=== PATIENT | male | born 1960 | race Caucasian/White ===

== ENCOUNTER 2017-10-31 11:30 | Inpatient (IN) ==
[2017-10-31] MEDS ORDERED: SODIUM CHLORIDE 0.9% 1,000 ML IV STA ×2 (12:04→13:21)
[2017-10-31] MEDS ORDERED: LEVOFLOXACIN INJ 750 MG in PREMIX 1 EACH IV STA (12:04)
[2017-10-31 12:13] LABS: Basophils % 0.2 % (0.0-0.8); Eosinophils # 0.1 10*3/uL (0.0-0.87); Eosinophils % 0.5 % (0.00-10.9); Hematocrit 36.5 VOL% (42.0-52.0); Hemoglobin 11.7 GM/DL (14.0-18.0); Immature Granulocytes % 0.5 %; Lymphocytes # 0.3 10*3/uL (1.4-4.0); Lymphocytes % 1.3 % (21.2-54.2); Mean Corpuscular HGB Conc 32.1 GM/DL (32-36); Mean Corpuscular Hemoglobin 27 PG (27-34); Mean Corpuscular Volume 83.1 FL (87-102); Mean Platelet Volume 9.1 FL (9.6-12.0); Monocytes # 0.5 10*3/uL (0.11-0.8); Monocytes % 2.4 % (1.7-12.7); Neutrophils % 95.1 % (38.7-73.9); Platelet Count 385 T/CUMM (130-400); Red Blood Count 4.39 MC/CUMM (3.8-5.5); White Blood Count 19.9 T/CUMM (4-12)
[2017-10-31 12:33] LABS: Lactic Acid 4.1 MMOL/L (0.4-2.0)
[2017-10-31 12:34] LABS: Band Neutrophils 1 % (0-10); Hypochromasia 1+; Lymphocytes 3 % (20-55); Microcytosis Slight; Segmented Neutrophils 95 % (50-85); Total Cells Counted 100
[2017-10-31 12:42] LABS: Alanine Aminotransferase 74 U/L (16-61); Albumin 3.3 G/DL (3.4-5.0); Alkaline Phosphatase 183 U/L (45-117); Aspartate Amino Transferase 91 U/L (0-37); Bilirubin,Total < 0.39 MG/DL (0.2-1.0); Blood Urea Nitrogen 12 MG/DL (7-18); Calcium 9.5 MG/DL (8.5-10.1); Glucose 152 MG/DL (74-106); Osmolality,Calculated 279.5 MOS/KG (273-304); Potassium 3.8 MMOL/L (3.5-5.1); Sodium 139 MMOL/L (136-145); Total Protein 7.8 G/DL (6.4-8.3)
[2017-10-31] MEDS ORDERED: SODIUM CHLORIDE 0.9% 2,450 ML IV ONE (13:16)
[2017-10-31] MEDS ORDERED: POLYVINYL ALCOHOL 1.4% OPH SOLN 15 ML BOTTLE BOTH EYES PRN (13:40)
[2017-10-31] MEDS ORDERED: MOISTURIZING CREAM (EUCERIN) 113 GM JAR TOP PRN (13:40)
[2017-10-31] MEDS ORDERED: DEXTROSE 50% 25 GM/50 ML VIAL IV PRN (14:00)
[2017-10-31] MEDS ORDERED: PIPERACILLIN/TAZOBACTAM 3,375 MG in SODIUM CHLORIDE 0.9% 100 ML IV SCH (14:00)
[2017-10-31] MEDS ORDERED: GLUCAGON 1 MG VIAL IM PRN (14:00)
[2017-10-31] MEDS ORDERED: guaiFENesin/DM ER 600-30 MG TABLET PO PRN (14:04)
[2017-10-31] MEDS ORDERED: ACETAMINOPHEN 325 MG TABLET PO PRN (14:04)
[2017-10-31] MEDS ORDERED: ONDANSETRON 4 MG/2 ML VIAL IV PRN (14:04)
[2017-10-31] MEDS ORDERED: ALBUTEROL 2.5 MG/3 ML NEB RESP TX PRN (14:04)
[2017-10-31 14:14] LABS: Amorphous Crystals,Urine Few /HPF (Few); Apearance,Urine CLOUDY (Clear); Bilirubin,Urine Negative (Negative); Blood, Urine Negative (Negative); Glucose,Urine (UA) Negative (Negative); Ketones,Urine Negative (Negative); Mucus,Urine Occasional /LPF (Occasional); Nitrite,Urine Negative (Negative); Protein,Urine Negative; Urine Color Yellow (Yellow); Urine Specific Gravity 1.012 (1.001-1.035); Urine Urobilinogen < 2.0 EU/DL (0.2-1.0); WBC,Urine 4 /HPF (0-6)
[2017-10-31] MEDS ORDERED: MEROPENEM 1,000 MG VIAL IV ONE (14:27)
[2017-10-31] MEDS ORDERED: NOREPINEPHRINE 8 MG in SODIUM CHLORIDE 0.9% 242 ML IV SCH (14:30)
[2017-10-31 14:42] LABS: ABG Base Excess 1.4 MMOL/L (-2.5-2.5); ABG HCO3 25.6 MMOL/L (20-26); ABG Oxygen Saturation 97.9 % (95-100); ABG PCO2 43.5 MM HG (35-48); ABG PH 7.393 (7.35-7.45); ABG TCO2 24.1 MMOL/L (23-27); Allen Test Positive
[2017-10-31] MEDS: SODIUM CHLORIDE 0.9% 1,000 ML IV SCH (16:10)
[2017-10-31] MEDS: MEROPENEM 500 MG in SYRINGE 1 EACH IV SCH ×2 (16:10→23:41)
[2017-10-31] MEDS: VANCOMYCIN INJ 1,250 MG in SODIUM CHLORIDE 0.9% 250 ML IV SCH (16:11)
[2017-10-31] MEDS: INSULIN REGULAR 100 UNIT/ML SUBCUT SCH ×2 (18:56→21:45)
[2017-10-31] MEDS: GABAPENTIN 300 MG CAPSULE PO SCH ×2 (18:56→21:32)
[2017-10-31] MEDS: DOCUSATE SODIUM 100 MG CAPSULE PO SCH (21:33)
[2017-10-31] MEDS: HEPARIN 5,000 UNIT/1 ML VIAL SUBCUT SCH (21:33)
[2017-11-01] MEDS: traZODone 50 MG TABLET PO PRN ×2 (01:45→21:41)
[2017-11-01] MEDS: SODIUM CHLORIDE 0.9% 1,000 ML IV SCH ×3 (02:18→17:17)
[2017-11-01] MEDS: HEPARIN 5,000 UNIT/1 ML VIAL SUBCUT SCH ×3 (07:02→21:41)
[2017-11-01] MEDS: MEROPENEM 500 MG in SYRINGE 1 EACH IV SCH ×3 (07:03→21:41)
[2017-11-01] MEDS: VANCOMYCIN INJ 1,250 MG in SODIUM CHLORIDE 0.9% 250 ML IV SCH ×2 (07:03→18:39)
[2017-11-01 07:05] LABS: Basophils % 0.3 % (0.0-0.8); Eosinophils # 0.5 10*3/uL (0.0-0.87); Eosinophils % 3.2 % (0.00-10.9); Hematocrit 33.3 VOL% (42.0-52.0); Hemoglobin 10.5 GM/DL (14.0-18.0); Immature Granulocytes % 0.6 %; Immature Granulocytes Absolute 0.09 #; Lymphocytes % 13.9 % (21.2-54.2); Mean Corpuscular HGB Conc 31.5 GM/DL (32-36); Mean Corpuscular Hemoglobin 27 PG (27-34); Mean Corpuscular Volume 84.1 FL (87-102); Mean Platelet Volume 9.5 FL (9.6-12.0); Monocytes % 6.8 % (1.7-12.7); Neutrophils # 10.9 10*3/uL (1.4-7.4); Neutrophils % 75.2 % (38.7-73.9); Platelet Count 304 T/CUMM (130-400); Red Blood Count 3.96 MC/CUMM (3.8-5.5); Red Cell Distribution Width 14.1 % (9.3-17.3); White Blood Count 14.5 T/CUMM (4-12)
[2017-11-01 07:16] LABS: Calcium 8.7 MG/DL (8.5-10.1); Osmolality,Calculated 274.4 MOS/KG (273-304)
[2017-11-01] MEDS: INSULIN REGULAR 100 UNIT/ML SUBCUT SCH ×4 (07:33→22:09)
[2017-11-01] MEDS: FERROUS SULFATE 325 MG TABLET PO SCH (08:53)
[2017-11-01] MEDS: BISACODYL 5 MG TABLET PO SCH (08:54)
[2017-11-01] MEDS: GABAPENTIN 300 MG CAPSULE PO SCH ×3 (08:54→21:42)
[2017-11-01] MEDS: DOCUSATE SODIUM 100 MG CAPSULE PO SCH ×2 (08:55→21:41)
[2017-11-01] MEDS: SERTRALINE 50 MG TABLET PO SCH (08:55)
[2017-11-01] MEDS: PANTOPRAZOLE 40 MG VIAL IV SCH (08:55)
[2017-11-01] MEDS ORDERED: SODIUM CHLORIDE 0.9% 500 ML IV ONE (09:08)
[2017-11-01 09:39] LABS: Albumin 2.4 G/DL (3.4-5.0); Bilirubin,Total 0.4 MG/DL (0.2-1.0); Osmolality,Calculated 279.1 MOS/KG (273-304); Total Protein 6.7 G/DL (6.4-8.3)
[2017-11-01] MEDS ORDERED: ZINC OXIDE PASTE 113 GM TUBE TOP PRN (14:38)
[2017-11-01 18:12] LABS: Lymphocytes,Synovial Fluid 77 %; Neutrophils,Synovial Fluid 20 %
[2017-11-02] MEDS: SODIUM CHLORIDE 0.9% 1,000 ML IV SCH ×4 (01:53→17:22)
[2017-11-02] MEDS: HEPARIN 5,000 UNIT/1 ML VIAL SUBCUT SCH ×3 (03:59→20:52)
[2017-11-02] MEDS: MEROPENEM 500 MG in SYRINGE 1 EACH IV SCH ×3 (06:44→21:01)
[2017-11-02] MEDS: VANCOMYCIN INJ 1,250 MG in SODIUM CHLORIDE 0.9% 250 ML IV SCH (06:45)
[2017-11-02] MEDS: INSULIN REGULAR 100 UNIT/ML SUBCUT SCH ×4 (07:52→20:52)
[2017-11-02] MEDS: PANTOPRAZOLE 40 MG VIAL IV SCH (08:22)
[2017-11-02] MEDS: SERTRALINE 50 MG TABLET PO SCH (08:23)
[2017-11-02] MEDS: FERROUS SULFATE 325 MG TABLET PO SCH (08:23)
[2017-11-02] MEDS: BISACODYL 5 MG TABLET PO SCH (08:23)
[2017-11-02] MEDS: GABAPENTIN 300 MG CAPSULE PO SCH ×3 (08:23→20:52)
[2017-11-02] MEDS: DOCUSATE SODIUM 100 MG CAPSULE PO SCH ×2 (08:23→20:51)
[2017-11-02] MEDS: traZODone 50 MG TABLET PO PRN (21:09)
[2017-11-03] MEDS: VANCOMYCIN INJ 1,250 MG in SODIUM CHLORIDE 0.9% 250 ML IV SCH ×2 (01:00→18:40)
[2017-11-03 03:30] LABS: Basophils % 0.3 % (0.0-0.8); Eosinophils # 0.3 10*3/uL (0.0-0.87); Eosinophils % 2.3 % (0.00-10.9); Hematocrit 32.6 VOL% (42.0-52.0); Hemoglobin 10.2 GM/DL (14.0-18.0); Immature Granulocytes % 0.4 %; Immature Granulocytes Absolute 0.04 #; Lymphocytes % 18.2 % (21.2-54.2); Mean Corpuscular HGB Conc 31.3 GM/DL (32-36); Mean Corpuscular Hemoglobin 26 PG (27-34); Mean Platelet Volume 9.2 FL (9.6-12.0); Monocytes # 0.5 10*3/uL (0.11-0.8); Monocytes % 4.5 % (1.7-12.7); Neutrophils # 7.9 10*3/uL (1.4-7.4); Neutrophils % 74.3 % (38.7-73.9); Platelet Count 393 T/CUMM (130-400); Red Blood Count 3.93 MC/CUMM (3.8-5.5); Red Cell Distribution Width 13.5 % (9.3-17.3); White Blood Count 10.7 T/CUMM (4-12)
[2017-11-03 04:13] LABS: Calcium 9.3 MG/DL (8.5-10.1); Osmolality,Calculated 284.7 MOS/KG (273-304); Potassium 3.4 MMOL/L (3.5-5.1)
[2017-11-03] MEDS: HEPARIN 5,000 UNIT/1 ML VIAL SUBCUT SCH ×3 (04:27→22:04)
[2017-11-03] MEDS: SODIUM CHLORIDE 0.9% 1,000 ML IV SCH ×2 (04:28→21:00)
[2017-11-03] MEDS: MEROPENEM 500 MG in SYRINGE 1 EACH IV SCH ×3 (06:27→22:04)
[2017-11-03] MEDS: INSULIN REGULAR 100 UNIT/ML SUBCUT SCH ×4 (08:25→22:05)
[2017-11-03] MEDS: DOCUSATE SODIUM 100 MG CAPSULE PO SCH ×2 (09:34→22:05)
[2017-11-03] MEDS: BISACODYL 5 MG TABLET PO SCH (09:34)
[2017-11-03] MEDS: PANTOPRAZOLE 40 MG VIAL IV SCH (09:34)
[2017-11-03] MEDS: GABAPENTIN 300 MG CAPSULE PO SCH ×3 (09:34→22:05)
[2017-11-03] MEDS: FERROUS SULFATE 325 MG TABLET PO SCH (09:34)
[2017-11-03] MEDS: SERTRALINE 50 MG TABLET PO SCH (09:34)
[2017-11-03] MEDS: POTASSIUM CHLORIDE 20 MEQ TABLET PO SCH ×2 (13:15→16:52)
[2017-11-03] MEDS: traZODone 50 MG TABLET PO PRN (22:05)
[2017-11-04] MEDS: HEPARIN 5,000 UNIT/1 ML VIAL SUBCUT SCH ×3 (05:54→21:26)
[2017-11-04] MEDS: MEROPENEM 500 MG in SYRINGE 1 EACH IV SCH ×3 (06:16→21:26)
[2017-11-04] MEDS: INSULIN REGULAR 100 UNIT/ML SUBCUT SCH ×4 (07:21→21:27)
[2017-11-04] MEDS: SERTRALINE 50 MG TABLET PO SCH (09:38)
[2017-11-04] MEDS: PANTOPRAZOLE 40 MG TABLET PO SCH (09:38)
[2017-11-04] MEDS: GABAPENTIN 300 MG CAPSULE PO SCH ×3 (09:38→21:26)
[2017-11-04] MEDS: DOCUSATE SODIUM 100 MG CAPSULE PO SCH ×2 (09:38→21:27)
[2017-11-04] MEDS: FERROUS SULFATE 325 MG TABLET PO SCH (09:38)
[2017-11-04] MEDS: BISACODYL 5 MG TABLET PO SCH (09:38)
[2017-11-04] MEDS: VANCOMYCIN INJ 1,250 MG in SODIUM CHLORIDE 0.9% 250 ML IV SCH ×2 (13:10→21:25)
[2017-11-04] MEDS: traZODone 50 MG TABLET PO PRN (21:26)
[2017-11-05] MEDS: HEPARIN 5,000 UNIT/1 ML VIAL SUBCUT SCH ×3 (04:24→20:26)
[2017-11-05 05:50] LABS: Basophils % 0.3 % (0.0-0.8); Eosinophils # 0.3 10*3/uL (0.0-0.87); Eosinophils % 2.4 % (0.00-10.9); Hematocrit 36.5 VOL% (42.0-52.0); Hemoglobin 11.5 GM/DL (14.0-18.0); Immature Granulocytes % 0.6 %; Immature Granulocytes Absolute 0.06 #; Lymphocytes % 28.6 % (21.2-54.2); Mean Corpuscular HGB Conc 31.5 GM/DL (32-36); Mean Corpuscular Hemoglobin 26 PG (27-34); Mean Corpuscular Volume 82.8 FL (87-102); Mean Platelet Volume 9.3 FL (9.6-12.0); Monocytes # 0.6 10*3/uL (0.11-0.8); Monocytes % 5.8 % (1.7-12.7); Neutrophils # 6.5 10*3/uL (1.4-7.4); Neutrophils % 62.3 % (38.7-73.9); Platelet Count 459 T/CUMM (130-400); Red Blood Count 4.41 MC/CUMM (3.8-5.5); Red Cell Distribution Width 13.9 % (9.3-17.3); White Blood Count 10.5 T/CUMM (4-12)
[2017-11-05 06:08] LABS: Calcium 9.7 MG/DL (8.5-10.1); Osmolality,Calculated 278.3 MOS/KG (273-304); Potassium 3.8 MMOL/L (3.5-5.1)
[2017-11-05] MEDS: MEROPENEM 500 MG in SYRINGE 1 EACH IV SCH (06:29)
[2017-11-05] MEDS: INSULIN REGULAR 100 UNIT/ML SUBCUT SCH ×4 (07:30→20:27)
[2017-11-05] MEDS: VANCOMYCIN INJ 1,250 MG in SODIUM CHLORIDE 0.9% 250 ML IV SCH (09:00)
[2017-11-05] MEDS: DOCUSATE SODIUM 100 MG CAPSULE PO SCH ×2 (10:45→20:25)
[2017-11-05] MEDS: GABAPENTIN 300 MG CAPSULE PO SCH ×3 (10:45→20:25)
[2017-11-05] MEDS: FERROUS SULFATE 325 MG TABLET PO SCH (10:45)
[2017-11-05] MEDS: BISACODYL 5 MG TABLET PO SCH (10:45)
[2017-11-05] MEDS: SERTRALINE 50 MG TABLET PO SCH (10:45)
[2017-11-05] MEDS: PANTOPRAZOLE 40 MG TABLET PO SCH (10:45)
[2017-11-05] MEDS: traZODone 50 MG TABLET PO PRN (20:25)
[2017-11-06] MEDS: HEPARIN 5,000 UNIT/1 ML VIAL SUBCUT SCH ×3 (04:33→21:01)
[2017-11-06 05:55] LABS: Calcium 10.4 MG/DL (8.5-10.1); Osmolality,Calculated 279.3 MOS/KG (273-304); Potassium 3.7 MMOL/L (3.5-5.1)
[2017-11-06] MEDS: INSULIN REGULAR 100 UNIT/ML SUBCUT SCH ×4 (08:47→20:57)
[2017-11-06] MEDS: FERROUS SULFATE 325 MG TABLET PO SCH (09:09)
[2017-11-06] MEDS: PANTOPRAZOLE 40 MG TABLET PO SCH (09:09)
[2017-11-06] MEDS: DOCUSATE SODIUM 100 MG CAPSULE PO SCH ×2 (09:11→20:59)
[2017-11-06] MEDS: GABAPENTIN 300 MG CAPSULE PO SCH ×3 (09:11→20:59)
[2017-11-06] MEDS: BISACODYL 5 MG TABLET PO SCH (09:11)
[2017-11-06] MEDS: SERTRALINE 50 MG TABLET PO SCH (09:11)
[2017-11-06] MEDS: traZODone 50 MG TABLET PO PRN (20:59)
[2017-11-07] MEDS: HEPARIN 5,000 UNIT/1 ML VIAL SUBCUT SCH (04:37)
[2017-11-07 08:07] VITALS: BP 108/76
[2017-11-07] MEDS: SERTRALINE 50 MG TABLET PO SCH (08:31)
[2017-11-07] MEDS: FERROUS SULFATE 325 MG TABLET PO SCH (08:31)
[2017-11-07] MEDS: DOCUSATE SODIUM 100 MG CAPSULE PO SCH (08:31)
[2017-11-07] MEDS: PANTOPRAZOLE 40 MG TABLET PO SCH (08:31)
[2017-11-07] MEDS: GABAPENTIN 300 MG CAPSULE PO SCH (08:31)
[2017-11-07] MEDS: BISACODYL 5 MG TABLET PO SCH (08:34)
[2017-11-07] MEDS: INSULIN REGULAR 100 UNIT/ML SUBCUT SCH (08:34)
== END 2017-11-07 11:27 | disposition home health service (06) | DRG 866 ==
LOC: EDUNIT# → EDBD → N.ED 11:30 → N.EDINP 13:46 → SUATTDRO 13:46 → N.CC 18:25 → N.2E 11-03 18:47
PROVIDERS: ADMIT Internal Medicine